=== PATIENT | female | born 1980 | race Caucasian/White ===

== ENCOUNTER 2016-07-29 16:38 | Emergency (ER) | payer MEDICAID ==
[~2016-07-29 16:38] MED LIST: ALBU6.7H INH; ZITH250T PO
[2016-07-29] MEDS ORDERED: SODIUM CHLORIDE 0.9% FLUSH 5 ML FLUSH IVF PRN (17:45)
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
[2016-07-29 18:27] LABS: BACTERIA, URINE RARE /hpf; BLOOD, URINE NEG (NEG); COMMENT (UR) CULT NOT INDICATED; CULTURE IF INDICATED CULT NOT INDICATED; GLUCOSE,URINE NEG (NEG); KETONE, URINE NEG (NEG); MUCUS URINE FEW /lpf (OCC); NITRITE,URINE NEG (NEG); SQUAMOUS EPITHELIAL CELL URINE 9 /hpf (0-5); URINE COLOR YELLOW (YELLW/STRAW)
[2016-07-29] MEDS ORDERED: SODIUM CHLORIDE 0.9% FLUSH 5 ML FLUSH IVF SCH (21:00)
== END 2016-07-29 18:10 | disposition home or self-care (01) ==
LOC: HOBED 16:38
DX: O9A.212 Injury, poisoning and certain other consequences of external causes complicating pregnancy, second trimester (principal); R51 Headache; M54.2 Cervicalgia; Z3A.23 23 weeks gestation of pregnancy; V49.40XA Driver injured in collision with unspecified motor vehicles in traffic accident, initial encounter
CPT/HCPCS: 81001; 99284

== ENCOUNTER 2016-07-29 18:09 | Emergency (ER) | payer OTHER, MEDICAID ==
[~2016-07-29] VITALS: Ht 177.8 cm; Wt 84.0 kg
[2016-07-29 18:11] VITALS: BP 118/86; PULSE 84; RESP 1; RESP 14; TEMP 98.1; O2SAT 100
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
== END 2016-07-29 20:52 | disposition home or self-care (01) ==
LOC: NEPB 18:09
DX: O9A.212 Injury, poisoning and certain other consequences of external causes complicating pregnancy, second trimester (principal); K08.89 Other specified disorders of teeth and supporting structures; R51 Headache; M54.9 Dorsalgia, unspecified; M54.2 Cervicalgia; Z3A.23 23 weeks gestation of pregnancy; V53.5XXA Driver of pick-up truck or van injured in collision with car, pick-up truck or van in traffic accident, initial encounter
CPT/HCPCS: 99283

== ENCOUNTER 2016-11-21 07:59 | Inpatient (IN) | payer MEDICAID ==
[~2016-11-21] VITALS: Ht 177.8 cm; Wt 96.2 kg
[2016-11-21] VITALS (7 sets, daily range): BP systolic 104–121; BP diastolic 60–85; PULSE 58–88; RESP 16–18; TEMP 97.9–98.7
[2016-11-21] MEDS ORDERED: PRENCHW PO (08:58)
[2016-11-21] MEDS ORDERED: VITA500C9 CHEW (08:58)
[2016-11-21] MEDS ORDERED: ONDANSETRON HCL 4 MG/2 ML VIAL IV PRN (09:00)
[2016-11-21] MEDS ORDERED: LACTATED RINGER'S 1000 ML INJ 1,000 ML IV PRN (09:00)
[2016-11-21] MEDS ORDERED: SODIUM CHLORID 0.9% 500 ML INJ 500 ML IV PRN (09:00)
[2016-11-21] MEDS ORDERED: OXYTOCIN 30 UNITS-500ML PREMIX 500 ML IV ONE (09:00)
[2016-11-21] MEDS ORDERED: MINERAL OIL 10 ML VIAL TOPICAL PRN (09:00)
[2016-11-21] MEDS ORDERED: CITRIC ACID-SODIUM CITRATE LIQ 30 ML UDC PO SCH (09:00)
[2016-11-21] MEDS ORDERED: LIDOCAINE HCL 1% 50 ML VIAL I-DERMAL PRN (09:00)
[2016-11-21] MEDS ORDERED: LIDOCAINE HCL 1% 50 ML VIAL INFIL PRN (09:00)
[2016-11-21] MEDS ORDERED: LACTATED RINGER'S 1000 ML INJ 1,000 ML IV SCH (09:00)
[2016-11-21] MEDS ORDERED: OXYTOCIN 30 UNITS-500ML PREMIX 500 ML IV SCH (09:00)
--- NOTE | 2016-11-21 09:09 | HHI.HP ---
HPI Chief Complaint term IOL, favorable, multip Date Seen: November 21, 2016 Time Seen: 09:00 Travel History International Travel<30 Days: No Contact w/Intl Traveler<30Days: No Known Affected Area: No History of Present Illness HPI 35 yo with EDC 11/26/16, 39w2d today bu LMP c/w 12 wk sono, admitted for term induction, has childcare issues, is only home F-Sun. Favorable Anderson score. Pt has c/o mild cramps but no regular contractions, no VB or LOF , endorses good FM. Pain 1/10 in pelvis. Only complications of are advanced maternal age and varicella non-immune. Para: 6 : 7 Last Menstrual Period: Mar 14, 2016 Miscarriage: 0 : 0 History Past Medical History Narrative Medical advanced maternal age Obstetric History Obstetric History G1 = 36 wk G2 - G6 = FT in order: F, F, M, M, F,F Past Surgical History Surgical History: No Previous Surgery Family History Narrative Family History maternal aunt and mother with ovarian cancer in age 50s Social History Alcohol Use: No Tobacco Use: No Substance Abuse: No Allergies-Medications (Allergen,Severity, Reaction): Uncoded Allergies: ICEHOT (Allergy, Severe, Rash, 07/29/16) MARMALADE (Allergy, Severe, Hives, 08/17/14) Home Meds Reported Medications Vit W/ Ferrous Fumara ( 19)1 Chw Chw Tab PO DAILY PRN (CRAMPS) 11/21/16 Ascorbic Acid (Vitamin C)500 Mg Rxry131 Mg CHEW DAILY #30 TAB Ref 0 11/21/16 Review of Systems General / Constitutional: Weight Gain, No: Fever, Chills, Other Eyes: No: Diploplia, Blurred Vision, Visual changes, Pain, Photophobia HENT: No: Headaches, Vertigo, Lightheadedness Cardiovascular: No: Irregular Rhythm, Chest Pain or Discomfort, Palpitations, Tachycardia, Syncope, Varicosities, Edema, Cyanosis Respiratory: No: Cough, Short of Breath, Other Gastrointestinal: No: Nausea, Vomiting, Diarrhea Genitourinary: Pelvic Pain (pressure), No: Decreased Urinary Output, Oliguria Musculoskeletal: No: Limited ROM, Weakness, Cramping, Edema, Pain Skin: No Rash, No Itching, No Dryness, No Lumps, No Change in Pigmentation, No Change in Nails, No Alopecia, No Lesions Neurologic: No: Weakness, Dizziness, Syncope, Focal Abnormalities, Coordination Problem, Headache, Slurred Speech, Seizures Psychiatric: No: Depression, Suicidal Ideations, Homicidal Ideation Endocrine: No: Heat Intolerance, Cold Intolerance, Polydipsia, Polyuria, Other Physical Exam Narrative GENERAL: Well-nourished, well-developed patient. SKIN: Warm and dry. HEAD: Normocephalic and atraumatic. EYES: No scleral icterus. No injection or drainage. ENT: No nasal drainage noted. Mucous membranes pink. Airway patent. NECK: Supple, trachea midline. No JVD. CARDIOVASCULAR: Regular rate and rhythm without murmurs, gallops, or rubs. RESPIRATORY: Breath sounds equal bilaterally. No accessory muscle use. BREASTS: deferred ABDOMEN/GI: Abdomen soft, non-tender, bowel sounds present, no rebound, no guarding Gravid to [39] weeks size Fundal Height: [39] GENITOURINARY: / in office Presentation: [vtx] Membranes: [intact] Uterine Contractions: [irreg] EXTREMITIES: No cyanosis or edema. BACK: Nontender without obvious deformity. No CVA tenderness. NEUROLOGICAL: Awake and alert. Motor and sensory grossly within normal limits. Five out of 5 muscle strength in all muscle groups. Normal speech. Data Data Vital Signs Reviewed: Yes Orders Admit To Inpatient (11/21/16 ) Code Status (11/21/16 09:00) Vital Signs (Adult) .Per protocol (11/21/16 09:00) Activity Oob Ad Rimma (11/21/16 09:00) Heart (11/21/16 09:00) Amnioinfusion (11/21/16 09:00) Urinary Catheter Management .ONCE (11/21/16 09:00) Diet Liquid (11/21/16 Breakfast) Lactated Ringer's 1000 Ml Inj (Lr 1000 M (11/21/16 09:00) Lactated Ringer's 1000 Ml Inj (Lr 1000 M (11/21/16 09:00) Sodium Chlorid 0.9% 500 Ml Inj (Ns 500 M (11/21/16 09:00) Sodium Chlor 0.9% 1000 Ml Inj (Ns 1000 M (11/21/16 09:20) Lidocaine 1% Inj (50 Ml) (Xylocaine 1% I (11/21/16 09:00) Citric Acid-Sodium Citrate Liq (Bicitra (11/21/16 09:00) Ondansetron Inj (Zofran Inj) (11/21/16 09:00) Fentanyl Inj (Fentanyl Inj) (11/21/16 09:00) Fentanyl Inj (Fentanyl Inj) (11/21/16 09:00) Complete Blood Count With Diff (11/21/16 09:00) Hold Clot (11/21/16 09:00) Abo/Rh Blood Type (11/21/16 09:00) Urinalysis - C+S If Indicated (11/21/16 09:00) Resp Oxygen Non Rebreathe Mask (11/21/16 ) ^ Epidural / Intrathecal Infus (11/21/16 09:00) Oxytocin 30 Units-500ml Premix (Pitocin (11/21/16 09:00) Lidocaine 1% Inj (50 Ml) (Xylocaine 1% I (11/21/16 09:00) Light Mineral Oil (Muri-Lube Oil) (11/21/16 09:00) Inpatient Certification (11/21/16 ) Specimen To Be Collected PRN (11/21/16 09:00) ^ Non Stress Test (11/21/16 09:00) Response To Medication .Post New Med Administration, Reaction (11/21/16 09:00) ^ Discontinue Medication (11/21/16 09:00) Oxytocin Drip (2-2-30) (11/21/16 09:00) Assessment/Plan Problem List: (1) Labor and delivery indication for care or intervention (2) Term (3) Grand multipara in labor Assessment and Plan 35 yo at 39w2d admit for term IOL due to social considerations 1) IOL: start pitocin, AROM as needed, anticipate 2) GBS neg 3) AMA: pt declined genetic testing; sonogram normal at 21 wks 4) status: male, vertex, Cat I tracing Discharge Planning routine, 2d PP Tasha Morel MD November 21, 2016 09:09
[2016-11-21 09:14] LABS: AUTOMATED NEUTROPHIL # 8.6 TH/MM3 (1.8-7.7); BASOPHIL % 0.2 % (0.0-2.0); EOSINOPHIL # 0.6 TH/MM3 (0-0.4); EOSINOPHIL % 5.1 % (0.0-4.0); HEMATOCRIT 31.8 % (35.0-46.0); LYMPH % 13.7 % (9.0-44.0); LYMPHOCYTE # 1.6 TH/MM3 (1.0-4.8); MEAN CELL VOLUME 75.1 FL (80.0-100.0); MEAN CORPUSCULAR HEMOGLOBIN 23.7 PG (27.0-34.0); MEAN CORPUSCULAR HGB CONC 31.6 % (32.0-36.0); MONO % 7.1 % (0.0-8.0); NEUT % 73.9 % (16.0-70.0); PLATELET COUNT 207 TH/MM3 (150-450); RED BLOOD COUNT 4.23 MIL/MM3 (4.00-5.30); WHITE BLOOD COUNT 11.7 TH/MM3 (4.0-11.0)
[2016-11-21 09:17] LABS: HEMO FLAGS AUTO DIFF
[2016-11-21] MEDS ORDERED: SODIUM CHLOR 0.9% 1000 ML INJ 1,000 ML IV PRN (09:20)
[2016-11-21 09:27] LABS: BACTERIA, URINE OCC /hpf; BLOOD, URINE NEG (NEG); COMMENT (UR) CULT NOT INDICATED; CULTURE IF INDICATED CULT NOT INDICATED; GLUCOSE,URINE NEG (NEG); KETONE, URINE NEG (NEG); MUCUS URINE FEW /lpf (OCC); NITRITE,URINE NEG (NEG); PH, URINE 6.5 (5.0-8.5); SQUAMOUS EPITHELIAL CELL URINE 16 /hpf (0-5); TRANSITIONAL EPI CELLS, URINE <1 /hpf; URINE COLOR YELLOW (YELLW/STRAW)
[2016-11-21] MEDS ORDERED: OXYTOCIN 30 UNITS/NS 500ML PREMIX IV SCH (09:45)
[2016-11-21 10:02] LABS: OVALOCYTES 1+ (NORMAL)
[2016-11-21 10:03] LABS: PLATELET ESTIMATE SMEAR NORMAL (NORMAL); PLATELET MORPHOLOGY NORMAL (NORMAL); SCAN/DIFF AUTO DIFF CONFIRMED
--- NOTE | 2016-11-21 12:34 | PD.LABORPN ---
Subjective Subjective feeling uncomfortable, painful contractions, 6-02/26 Objective Vital Signs Vital Signs Date Time Temp Pulse Resp B/P Pulse Ox O2 Delivery O2 Flow Rate FiO2 11/21/16 10:58 18 11/21/16 10:50 58 121/75 11/21/16 10:04 63 120/84 11/21/16 10:00 88 105/85 11/21/16 09:53 73 110/85 Objective Pelvic Exam: Cervix: [stretchy] Dilatation: [8 with BBOW] Effacement: [70] Station: [-1] Presentation: [vtx] Membranes:AROM'd mec this check Uterine Contractions: [q4 min] FHT's: Category: [I] Baseline: [130s] Reactive: [y] Variability: [y] Decels: [occ variables] Assessment/Plan Problem List: (1) Labor and delivery indication for care or intervention (2) Term (3) Grand multipara in labor Assessment and Plan 35 yo admit for term IOL at 39w2d 1) IOL: AROM'd this check, pt very uncomfortable with ctx, anticipate ; reviewed meconium & need for no stimulation at delivery 2) GBS neg 3) AMA 4) status: vtx, Cat I tracing Tasha Morel MD November 21, 2016 12:33
[2016-11-21] MEDS ORDERED: MISOPROSTOL 200 MCG TAB ONE (12:49)
--- NOTE | 2016-11-21 12:58 | HHI.DCPOC ---
Discharge Care Plan Diagnosis: (1) (spontaneous vaginal delivery) Your Health Problems Are: Vaginal delivery Report Symptoms to Your Doctor -Temperate above 100.5 degrees -Redness, of incision or excessive or foul smelling drainage -Unusual pain or calf pain -Increased vaginal bleeding -Painful or difficulty urinating -Feelings of extreme sadness or anxiety after 2 weeks Goals to Promote Your Health * To prevent worsening of your condition and complications * To maintain your health at the optimal level Directions to Meet Your Goals Take your medications as prescribed Follow your dietary instruction Follow activity as directed Ensure plenty of rest for recovery Drink fluids for hydration Keep your appointments as scheduled Take your immunizations and boosters as scheduled If your symptoms worsen call your PCP, if no PCP go to Urgent Care Center or Emergency Room Smoking is Dangerous to Your Health. Avoid second hand smoke Call the 24-hour crisis hotline for domestic abuse at Tasha Morel MD November 21, 2016 12:58
[2016-11-21] MEDS ORDERED: IBUP-232 PO (12:59)
[2016-11-21] MEDS ORDERED: ALUMINUM/MAGNESIUM/SIMETH 30 ML CUP PO PRN (13:00)
[2016-11-21] MEDS ORDERED: ONDANSETRON ODT 4 MG TAB PO PRN (13:00)
[2016-11-21] MEDS ORDERED: oxyCODONE/ACETAMINOPHEN 5 MG/325 MG TAB PO PRN (13:00)
[2016-11-21] MEDS ORDERED: SODIUM CHLORIDE 0.9% FLUSH 10 ML FLUSH IV FLUSH PRN (13:00)
[2016-11-21] MEDS ORDERED: ACETAMINOPHEN 1000 MG/100 ML VIAL IV ONE (13:00)
[2016-11-21] MEDS ORDERED: DOCUSATE SODIUM 50 MG/SENNA 8.6 MG TAB PO PRN (13:00)
[2016-11-21] MEDS ORDERED: ACETAMINOPHEN 325 MG TAB PO PRN (13:00)
[2016-11-21] MEDS ORDERED: SODIUM CHLORIDE 0.9% FLUSH 10 ML FLUSH IV FLUSH SCH (13:00)
[2016-11-21] MEDS ORDERED: ZOLPIDEM TARTRATE 5 MG TAB PO PRN (13:00)
--- NOTE | 2016-11-21 13:01 | PD.OB.DELI ---
Delivery Date: November 21, 2016 Anesthesia: None Episiotomy: None Vaginal Delivery: Normal Presentation: Vertex Nuchal Cord: None Delayed cord clamping (45 sec): No (meconium; cord clamped & cut immediately for eval by nursery) Infant: Male, Single One Minute : 9 Five Minute : 9 Weight: 7#8oz Placenta: Spontaneous delivery, Intact, 3 vessel cord Laceration: No lacerations Additional Information EBL 100 mL prophylactic misoprostol 600 mcg placed rectally due to multiparous status healthy male "Vin" for circ prior to discharge Tasha Morel MD November 21, 2016 13:01
[2016-11-21] MEDS: IBUPROFEN 600 MG TAB PO PRN ×2 (13:17→20:21)
[2016-11-21] MEDS: BENZOCAINE 20% TOPICAL SPRAY 60 ML CAN TOPICAL PRN (13:17)
[2016-11-21] MEDS: WITCH HAZEL 50%/GLYCERIN 12.5% 40 PAD JAR TOPICAL PRN (13:18)
[2016-11-21] MEDS ORDERED: MEASLES, MUMPS, RUBELLA VACCINE 0.5 ML VIAL SQ ONE (16:00)
[2016-11-21] MEDS ORDERED: DIPHTH/TETANUS/ACEL PERTUSSIS (BOOSTER) 0.5 ML VIAL/PFS IM ONE (16:00)
[2016-11-22] MEDS: IBUPROFEN 600 MG TAB PO PRN ×3 (05:38→18:36)
--- NOTE | 2016-11-22 12:22 | HHI.OB ---
Subjective Post Day: 1 Remarks doing well desires circ nursing well Objective Vitals/I&O Vital Signs Date Time Temp Pulse Resp B/P Pulse Ox O2 Delivery O2 Flow Rate FiO2 11/21/16 20:00 97.9 73 16 104/60 11/21/16 15:05 98.7 76 18 110/69 Objective Remarks GENERAL: Well-nourished, well-developed patient. CARDIOVASCULAR: Regular rate and rhythm without murmurs, gallops, or rubs. RESPIRATORY: Breath sounds equal bilaterally. No accessory muscle use. ABDOMEN/GI: Abdomen soft, non-tender. Fundus: Firm, non-tender at umbilicus. GENITOURINARY: Light to moderate bleeding. EXTREMITIES: No cyanosis or edema, non-tender, without signs of DVT. Medications and IVs Current Medications Medications (Trade) Dose Ordered Sig/Doug Route Start Time Stop Time Status Last Admin (NS Flush) 2 ml BID IV FLUSH 11/21/16 13:00 11/21/16 14:00 (NS Flush) 2 ml UNSCH PRN IV FLUSH 11/21/16 13:00 (Tylenol) 650 mg Q4H PRN PO 11/21/16 13:00 (Motrin) 600 mg Q6H PRN PO 11/21/16 13:00 11/22/16 05:38 (Percocet 5-325 Mg) 1 tab Q4H PRN PO 11/21/16 13:00 (Americaine 20% Top Spr) 1 spray Q4H PRN TOPICAL 11/21/16 13:00 11/21/16 13:17 (Tucks Pads) 1 applic QID PRN TOPICAL 11/21/16 13:00 11/21/16 13:18 (Caitlin-Colace) 2 tab Q12H PRN PO 11/21/16 13:00 (Ambien) 5 mg HS PRN PO 11/21/16 13:00 (Mag-Al Plus Susp Liq) 15 ml Q8H PRN PO 11/21/16 13:00 (Zofran Odt) 4 mg Q6H PRN PO 11/21/16 13:00 Assessment/Plan Problem List: (1) Labor and delivery indication for care or intervention (2) Term (3) Grand multipara in labor Assessment and Plan 35 yo at 39w2d admit for term IOL due to social considerations 1) IOL: start pitocin, AROM as needed, anticipate 2) GBS neg 3) AMA: pt declined genetic testing; sonogram normal at 21 wks 4) status: male, vertex, Cat I tracing Discharge Planning routine, 2d PP Chelsie Garcia MD November 22, 2016 12:22
[2016-11-22] MEDS: BENZOCAINE 20% TOPICAL SPRAY 60 ML CAN TOPICAL PRN (12:46)
[2016-11-22] MEDS: WITCH HAZEL 50%/GLYCERIN 12.5% 40 PAD JAR TOPICAL PRN (12:46)
[2016-11-23] MEDS: IBUPROFEN 600 MG TAB PO PRN (08:22)
--- NOTE | 2016-11-23 09:04 | HHI.OB ---
Subjective Remarks Doing well nursing well ready for discharge Objective Objective Remarks GENERAL: Well-nourished, well-developed patient. CARDIOVASCULAR: Regular rate and rhythm without murmurs, gallops, or rubs. RESPIRATORY: Breath sounds equal bilaterally. No accessory muscle use. ABDOMEN/GI: Abdomen soft, non-tender. Fundus: Firm, non-tender at umbilicus. GENITOURINARY: Light to moderate bleeding. EXTREMITIES: No cyanosis or edema, non-tender, without signs of DVT. Medications and IVs Current Medications Medications (Trade) Dose Ordered Sig/Doug Route Start Time Stop Time Status Last Admin (NS Flush) 2 ml BID IV FLUSH 11/21/16 13:00 11/21/16 14:00 (NS Flush) 2 ml UNSCH PRN IV FLUSH 11/21/16 13:00 (Tylenol) 650 mg Q4H PRN PO 11/21/16 13:00 (Motrin) 600 mg Q6H PRN PO 11/21/16 13:00 11/23/16 08:22 (Percocet 5-325 Mg) 1 tab Q4H PRN PO 11/21/16 13:00 (Americaine 20% Top Spr) 1 spray Q4H PRN TOPICAL 11/21/16 13:00 11/22/16 12:46 (Tucks Pads) 1 applic QID PRN TOPICAL 11/21/16 13:00 11/22/16 12:46 (Caitlin-Colace) 2 tab Q12H PRN PO 11/21/16 13:00 (Ambien) 5 mg HS PRN PO 11/21/16 13:00 (Mag-Al Plus Susp Liq) 15 ml Q8H PRN PO 11/21/16 13:00 (Zofran Odt) 4 mg Q6H PRN PO 11/21/16 13:00 Assessment/Plan Problem List: (1) Labor and delivery indication for care or intervention (2) Term (3) Grand multipara in labor Assessment and Plan s/p doing well home with follow up in six weeks Discharge Planning routine, 2d PP Chelsie Garcia MD November 23, 2016 09:04
[2016-11-23] MEDS: WITCH HAZEL 50%/GLYCERIN 12.5% 40 PAD JAR TOPICAL PRN (12:17)
[2016-11-23] MEDS: BENZOCAINE 20% TOPICAL SPRAY 60 ML CAN TOPICAL PRN (12:17)
== END 2016-11-23 13:45 | disposition home or self-care (01) | DRG 774 ==
LOC: H2EB 07:59 → H1EA 14:22
PROVIDERS: ADMIT Obstetrics & Gynecology; ATTEND Obstetrics & Gynecology
PROC: 10E0XZZ Delivery of Products of Conception, External Approach (ICD-10-PCS; principal; 2016-11-21)
PROC: 3E033VJ Introduction of Other Hormone into Peripheral Vein, Percutaneous Approach (ICD-10-PCS; 2016-11-21)
DX: O77.0 Labor and delivery complicated by meconium in amniotic fluid (principal); O98.52 Other viral diseases complicating childbirth; O09.529 Supervision of elderly multigravida, unspecified trimester; Z3A.39 39 weeks gestation of pregnancy; Z37.0 Single live birth
CPT/HCPCS: 59025; 81001; 85025; 90715; J2590; J7120